=== PATIENT | male | born 1990 | race Caucasian/White ===

== ENCOUNTER 2020-02-28 12:47 | Emergency (ER) | payer MEDICAID ==
[~2020-02-28] VITALS: Ht 177.8 cm; Wt 118.2 kg
[~2020-02-28 12:47] MED LIST: NAPR-56 PO; NO HOME MEDS; PRED20TA PO
[2020-02-28 12:52] VITALS: BP 136/89
[2020-02-28] MEDS ORDERED: CYCL-1 PO (14:54)
[2020-02-28] MEDS ORDERED: TRAM50TA2 PO (14:54)
== END 2020-02-28 16:22 | disposition home or self-care (01) ==
LOC: ER 12:47
DX: M54.41 Lumbago with sciatica, right side (principal); J45.909 Unspecified asthma, uncomplicated; Z98.890 Other specified postprocedural states; Z88.5 Allergy status to narcotic agent; Z79.899 Other long term (current) drug therapy
CPT/HCPCS: 72100; 99283

== ENCOUNTER 2020-05-30 13:09 | Emergency (ER) | payer MEDICAID ==
[~2020-05-30] VITALS: Ht 180.3 cm; Wt 118.2 kg
[~2020-05-30 13:09] MED LIST changes: +CYCL-1 PO
[2020-05-30] MEDS ORDERED: HYDROcodone/acetaminophen 5mg/325mg tablet PO ONE (14:00)
[2020-05-30] MEDS ORDERED: polyethylene glycol 3350 17gm powd pack PO STA (14:00)
[2020-05-30] MEDS ORDERED: magnesium citrate 296ml oral solution PO ONE (14:00)
--- NOTE | 2020-05-30 17:07 | NUR ---
MRI transport at bedside.
--- NOTE | 2020-05-30 17:44 | NUR ---
Pt back from MRI
--- NOTE | 2020-05-30 18:47 | NUR ---
patient complains of no bm x 4 days with low back and left hip pain
[2020-05-30] MEDS ORDERED: dexamethasone sod phosphate 10mg/ml inj IV STA ×2 (19:11→19:15)
[2020-05-30] MEDS ORDERED: HYDROmorphone 1 mg/ml syringe IV ONE (19:15)
--- NOTE | 2020-05-30 20:05 | NUR ---
REPORT AND CARE TRANSFERRED TO [facility] FOR TRANSPORT TO [facility] FOR NEURO FOLLOW UP .
[2020-05-30 20:10] LABS: BASOPHILS # (AUTO) 0.1 X10'3 (0-0.2); BASOPHILS % (AUTO) 0.5 % (0-1); EOSINOPHILS # (AUTO) 0.6 X10'3 (0-0.9); EOSINOPHILS % (AUTO) 5.7 % (0-6); HEMATOCRIT 46.7 % (42.0-52.0); HEMOGLOBIN 16.5 g/dl (14.0-17.9); LYMPHOCYTES # (AUTO) 2.4 X10'3 (1.1-4.8); LYMPHOCYTES % (AUTO) 21.9 % (21-51); MEAN CORPUSCULAR HGB CONC 35.3 g/dL (33.0-36.5); MEAN CORPUSCULAR VOLUME 90.6 FL (78-98); MEAN PLATELET VOLUME 7.6 FL (7.4-10.4); MONOCYTES # (AUTO) 0.6 X10'3 (0-0.9); MONOCYTES % (AUTO) 5.5 % (2-12); NEUTROPHILS # (AUTO) 7.2 X10'3 (1.8-7.7); NEUTROPHILS % (AUTO) 66.4 % (42-75); PLATELET COUNT 233 X10'3 (140-440); RED BLOOD COUNT 5.16 X10'6 (4.70-6.10); RED CELL DISTRIBUTION WIDTH 13.3 % (11.5-14.5); WHITE BLOOD COUNT 10.9 X10'3 (4.5-11.0)
[2020-05-30 20:11] VITALS: BP 128/77
[2020-05-30 20:15] LABS: PARTIAL THROMBOPLASTIN TIME 28 SECONDS (22-32)
[2020-05-30 20:20] LABS: ALANINE AMINOTRANSFERASE 177 U/L (12-78); ALBUMIN 4.4 G/DL (3.4-5.0); ALKALINE PHOSPHATASE 53 IU/L (46-116); ANION GAP 7 (8-16); ASPARTATE AMINO TRANSFERASE 50 U/L (10-37); BILIRUBIN,TOTAL 0.6 MG/DL (0.1-1.0); BLOOD UREA NITROGEN 11 MG/DL (7-18); BUN/CREATININE RATIO 14.3 (5.4-32.0); CALCIUM 9.7 MG/DL (8.5-10.1); CHLORIDE 104 MMOL/L (99-107); CREATININE 0.77 MG/DL (0.60-1.10); GLUCOSE 102 MG/DL (70-104); MAGNESIUM 2.7 MG/DL (1.5-2.4); POTASSIUM 4.2 MMOL/L (3.5-5.1); SODIUM 140 MMOL/L (135-145); TOTAL CARBON DIOXIDE 28.7 MMOL/L (24-32); eGFR > 90 ML/MIN
== END 2020-05-30 20:05 | disposition short-term general hospital (02) ==
LOC: ER 13:09
DX: M51.26 Other intervertebral disc displacement, lumbar region (principal); G58.8 Other specified mononeuropathies; M48.00 Spinal stenosis, site unspecified; J45.909 Unspecified asthma, uncomplicated; Z20.828 Contact with and (suspected) exposure to other viral communicable diseases
CPT/HCPCS: 36415; 71045; 72148; 74018; 80053; 83735; 85025; 85610; 85730; 87635; 93005; 96374; 96375; 99285; C9803; J1100; J1170